=== PATIENT | female | born 1975 | race Hispanic/Latino ===

== ENCOUNTER 2021-12-30 19:47 | Emergency (ER) | payer OTHER, MEDICARE ==
[~2021-12-30] VITALS: Ht 165.1 cm; Wt 79.4 kg
[2021-12-30 20:14] LABS: BASOPHILS % (AUTO) 0.4 % (0.0-5.0); EOSINOPHILS % (AUTO) 3.6 % (0.0-8.0); LYMPHOCYTES % (AUTO) 29.9 % (21.0-51.0); MEAN CORPUSCULAR HEMOGLOBIN 27.7 pg (27.0-33.0); MEAN CORPUSCULAR HGB CONC 33.3 g/dL (32.0-36.0); MONOCYTES % (AUTO) 8.9 % (3.0-13.0); NEUTROPHILS % (AUTO) 56.4 % (40.0-77.0); PLATELET COUNT (AUTO) 148 K/uL (130-400); RED BLOOD CELL COUNT(AUTO) 5.06 MIL/uL (4.00-5.50); RED CELL DISTRIBUTION WIDTH 14.2 % (11.0-15.5); WHITE BLOOD COUNT (AUTO) 5.1 K/uL (4.8-10.8)
[2021-12-30 20:23] LABS: CREATININE 0.8 mg/dL (0.5-1.5); POTASSIUM 3.8 mmol/L (3.5-5.1)
[2021-12-30 20:28] LABS: ALBUMIN 3.3 g/dL (3.5-5.0); MAGNESIUM 1.9 mg/dL (1.80-2.40); TOTAL PROTEIN, SERUM 7.4 g/dL (6.0-8.3)
[2021-12-30 20:40] LABS: APPEARANCE,URINE CLOUDY (CLEAR); BILIRUBIN,URINE NEGATIVE (NEGATIVE); COLOR,URINE YELLOW (YELLOW); GLUCOSE, URINE (UA) >=1000 mg/dL (NEGATIVE); KETONES,URINE 5 mg/dL (NEGATIVE); LEUKOCYTE ESTERASE ,URINE NEGATIVE (NEGATIVE); NITRATE,URINE NEGATIVE (NEGATIVE); OCCULT BLOOD,URINE SMALL (NEGATIVE); PH,URINE 5.5 (5.0-8.0); PROTEIN,URINE 100 mg/dL (NEGATIVE); UROBILINOGEN,URINE 0.2 mg/dL (0.2-1.0)
[2021-12-30 20:45] LABS: B-TYPE NATRIURETIC PEPTIDE < 5 pg/mL (0-100)
[2021-12-30 20:50] LABS: BACTERIA,URINE Few /HPF (None Seen); YEAST,URINE BUDDING Many /HPF (None Seen)
[2021-12-30 20:51] LABS: MUCUS,URINE Few LPF (None Seen); SQUAMOUS EPITHELIAL CELL,UR Moderate /HPF (0-2)
[2021-12-30] MEDS ORDERED: ONDANSETRON ODT 4MG TAB SL ONE (21:30)
[2021-12-30] MEDS ORDERED: ACETAMINOPHEN 500 MG TABLET PO ONE (21:30)
[2021-12-30] MEDS ORDERED: ONDA4TAB10 PO (23:10)
[2021-12-30 23:23] VITALS: BP 119/68
== END 2021-12-30 23:29 | disposition home or self-care (01) ==
LOC: EDH 19:47
DX: U07.1 COVID-19 (principal); E11.65 Type 2 diabetes mellitus with hyperglycemia; T36.3X5A Adverse effect of macrolides, initial encounter; Z88.0 Allergy status to penicillin; Y92.89 Other specified places as the place of occurrence of the external cause
CPT/HCPCS: 99285; 71045; 87635; 82550; 83735; 84484; 80053; 83880; 85025; 87088; 81001; 36415; 93005; C9803

== ENCOUNTER 2024-10-13 19:46 | Emergency (ER) | payer MEDICARE, MEDICAID ==
[~2024-10-13] VITALS: Ht 160 cm; Wt 113.4 kg
[~2024-10-13 19:46] MED LIST: ONDA-243 PO
--- NOTE | 2024-10-13 21:04 | NUR ---
PENDING GFR RESULTS, IV SITE, & CONSENT FOR CT EXAM. Addendum: 10/13/24 at 2134 by BENITO BALLARD RAD CORRECTION: NO IV SITE NOR GFR NEEEDED FOR CT EXAM.
--- NOTE | 2024-10-13 21:12 | ERN ---
ED Note History of Present Illness Stated Complaint: PAIN IN ABDOMEN AND BACK,NAUSEA Chief Complaint: Abdominal Pain Time Seen by MD: 19:50 Time Seen by Midlevel: 19:52 Dictation: 38-YEAR-OLD FEMALE COMING IN WITH COMPLAINTS OF LEFT FLANK PAIN RADIATING TO THE LEFT UPPER QUADRANT ONSET YESTERDAY. PATIENT STATES HE ONLY HAS NAUSEA, NO DIARRHEA NO VOMITING. DENIES ANY DYSURIA HEMATURIA. PATIENT HAS A HISTORY OF HYPERTENSION, DIABETES CHOLESTEROL. Allergies: Coded Allergies: Penicillins (Unverified Allergy, Unknown, 12/30/21) Sulfa (Sulfonamide Antibiotics) (Unverified Allergy, Unknown, 10/13/24) Uncoded Allergies: FLU VACCINE (Allergy, Unknown, 10/13/24) Home Meds Active Scripts Ondansetron (Ondansetron Odt) 4 Mg Tab.rapdis, 4 MG PO TID PRN for NAUSEA, #15 TAB 0 Refills Prov:TEVIN LEOS MD 12/30/21 Past Medical History Past Medical History: Diabetes-Type II, High Cholesterol, Hypertension, Renal Failure Surgical History: Other, Surgical History Other: L BKA Review of System Dictation CONSTITUTIONAL: NEGATIVE FOR FEVER,CHILLS, AND WEIGHT LOSS EYES: NEGATIVE FOR INJURY, PAIN,REDNESS, AND DISCHARGE ENT: NEGATIVE FOR INJURY,PAIN OR SWELLING CARDIOVASCULAR: NEGATIVE FOR CHEST PAIN, PALPITATIONS, AND EDEMA RESPIRATORY: NEGATIVE FOR SHORTNESS OF BREATH, COUGH, AND WHEEZING, ABDOMEN/GI: POSITIVE FOR LEFT FLANK PAIN RADIATING TO THE LEFT UPPER QUADRANT, NAUSEA, NO VOMITING, NO DIARRHEA, AND NO CONSTIPATION BACK: NEGATIVE FOR INJURY AND PAIN : NEGATIVE FOR INJURY, BLEEDING AND DISCHARGE MS/EXTREMITY: NEGATIVE FOR INJURY AND DEFORMITY SKIN: NEGATIVE FOR RASH, AND DISCOLORATION NEURO: NEGATIVE FOR HEADACHE, WEAKNESS, NUMBNESS, TINGLING, AND SEIZURE PSYCH: NEGATIVE FOR SUICIDE IDEATION, HOMICIDAL IDEATION, AND HALLUCINATIONS Review of Systems: was completed Initial Vital Sign VS Vital Signs Date Time Temp Pulse Resp B/P (MAP) Pulse Ox O2 Delivery O2 Flow Rate FiO2 10/13/24 19:47 98.4 99 20 170/92 96 Room Air 10/13/24 20:07 0 21 Physical Exam Dictation GENERAL: AWAKE, ALERT, NAD HEAD/FACE: NORMOCEPHALIC, ATRAUMATIC EYES: PERRL, EOMI, VISION AT BASELINE ENT: ORAL CAVITY CLEAR, TMS CLEAR, NO SIGNS OF INFECTION NECK: TRACHEA MIDLINE, SUPPLE, NO NUCHAL RIGIDITY CARDIOVASCULAR: RRR, NORMAL S1/S2, NO MRGS, NO JVD RESPIRATORY: CTAB, NO RESPIRATORY DISTRESS, NO RALES OR WHEEZES ABDOMEN: SOFT, NON-TENDER, NON-DISTENDED, NORMAL BOWEL SOUNDS, NO GUARDING OR REBOUND. SKIN: WARM, DRY, NORMAL TURGOR, NO RASH MS/EXTREMITY: PULSES EQUAL, NO CYANOSIS, NEUROVASCULAR INTACT, FROM NEURO: COAX4, GCS 15, STRENGTH 5/5, CN 2-12 INTACT, NORMAL CEREBELLAR EXAM, NORMAL GAIT, PSYCH: NORMAL BEHAVIOR, MOOD, AND AFFECT NORMAL Results (Laboratory/Radiology) Laboratory/Radiology Laboratory Tests Test 10/13/24 21:00 10/13/24 21:25 Urine Color LIGHT-YELLOW (YELLOW) Urine Appearance CLEAR (CLEAR) Urine pH 5.5 (5.0-8.0) Urine Specific [place] 1.028 (1.001-1.031) Urine Protein 200 mg/dL (NEGATIVE) H Urine Glucose (UA) >=1000 mg/dL (NEGATIVE) H Urine Ketones NEGATIVE mg/dL (NEGATIVE) Urine Occult Blood SMALL (NEGATIVE) H Urine Nitrate NEGATIVE (NEGATIVE) Urine Bilirubin NEGATIVE mg/dL (NEGATIVE) Urine Urobilinogen 0.2 mg/dL (0.2-1.0) Urine Leukocyte Esterase NEGATIVE Maria Elena/uL Urine RBC 11-25 /HPF (0-1) H Urine WBC 2-5 /HPF (0-1) H Urine Squamous Epithelial Cells MOD /HPF (0-2) Urine Bacteria RARE /HPF (None Seen) Urine Hyaline Casts 2-5 /LPF (0-1 /LPF) H White Blood Count 8.2 K/uL (4.8-10.8) Red Blood Count 5.23 MIL/uL (4.00-5.50) Hemoglobin 13.9 g/dL (12.0-16.0) Hematocrit 42.3 % (36-48) Mean Corpuscular Volume 80.9 fL (79-99) Mean Corpuscular Hemoglobin 26.6 pg (27.0-33.0) L Mean Corpuscular Hemoglobin Concent 32.9 g/dL (32.0-36.0) Red Cell Distribution Width 14.7 % (11.0-15.5) Platelet Count 176 K/uL (130-400) Mean Platelet Volume 11.9 fL (7.5-10.5) H Immature Granulocyte % (Auto) 0.4 % (0-1) Neutrophils (%) (Auto) 68.3 % (40.0-77.0) Lymphocytes (%) (Auto) 21.6 % (21.0-51.0) Monocytes (%) (Auto) 5.5 % (3.0-13.0) Eosinophils (%) (Auto) 3.7 % (0.0-8.0) Basophils (%) (Auto) 0.5 % (0.0-5.0) Neutrophils # (Auto) 5.6 K/uL (1.8-7.7) Lymphocytes # (Auto) 1.8 K/uL (1.0-4.8) Monocytes # (Auto) 0.5 K/uL (0.1-1.0) Eosinophils # (Auto) 0.30 K/uL (0.00-0.70) Basophils # (Auto) 0.04 K/uL (0.00-0.20) Absolute Immature Granulocyte (auto 0.03 K/uL (0-1) Nucleated Red Blood Cells 0.0 % (0.0-0.19) Sodium Level 139 mmol/L (136-145) Potassium Level 3.7 mmol/L (3.5-5.1) Chloride Level 103 mmol/L (101-111) Carbon Dioxide Level 26 mmol/L (21-32) Blood Urea Nitrogen 19 mg/dL (7-18) H Creatinine 1.0 mg/dL (0.5-1.0) Glomerular Filtration Rate Calc 69 mL/min (>90) Random Glucose 203 mg/dL (70-105) H Total Calcium 8.6 mg/dL (8.5-10.1) Troponin I High Sensitivity < 4 ng/L (4-50) L Lipase 24 U/L (16-77) Labs Reviewed?: Yes CT Scan Comment: [place] [address] [place] [id number] IMAGING REPORT Signed PATIENT: ELENO ROBLES MR#: [id number] : 1975 SEX: F AGE: 48 LOCATION: [facility] ORDER 49 STATUS: REG ER REPORT#: [id number] SERVICE 47 REASON: LEFT FLANK PAIN RADIATING TO LUQ ORDERING PHYSICIAN: AIDA VARGAS NP PROCEDURE: ABD PEL WO - CT ABDOMEN/PELVIS W/O CONTRAST CT ABDOMEN/PELVIS W/O CONTRAST INDICATION: LEFT FLANK PAIN RADIATING TO LUQ TECHNIQUE: CT ABDOMEN/PELVIS W/O CONTRAST. Oral contrast was not given. Coronal and sagittal reformats were performed. CT was performed with one or more of the following dose reduction techniques: Automated exposure control, adjustment of the mA and/or kV according to the patient's size, or use of the iterative reconstruction technique. Comparison: None. FINDINGS: The noncontrast nature this study limits evaluation of abdominal viscera. No pulmonary consolidation or pleural effusion is seen. There is hepatic steatosis. Questionable small gallstone. No CT evidence of gallbladder thickening seen. The spleen, pancreas, and adrenal glands are within normal limits. No hydronephrosis or renal calculus is seen. Underdistention versus mild urinary bladder wall thickening. Correlate with urinalysis. There is mild constipation. Reproductive organs are grossly within normal limits for patient's age. No bowel obstruction identified. Appendix is normal in caliber. Atherosclerotic changes of the aorta with calcified plaques. Degenerative changes of the spine are seen. IMPRESSION: 1. No hydronephrosis or renal calculus is seen. 2. Underdistention versus mild urinary bladder wall thickening. Correlate with urinalysis. 3. There is mild constipation. DICTATED BY: ALEC LANGE MD DATE: 10/13/242149 ELECTRONICALLY SIGNED BY: ALEC LANGE MD DATE: 10/13/242155 ED Course ED Course Orders Procedure Category Date Status Time Cbc With Differential LAB 10/13/24 Complete 20:48 Basic Metabolic Panel LAB 10/13/24 Complete 20:48 Urinalysis Profile LAB 10/13/24 Complete 20:48 Lipase LAB 10/13/24 Complete 20:48 Ct Abdomen/Pelvis W/O CT 10/13/24 Resulted Contrast 20:48 0.9%Nacl 1000ml (Ns PHA 10/13/24 Complete 1000ml) 20:49 Ondansetron 4mg Inj PHA 10/13/24 Complete (Zofran 4mg Inj) 20:49 Ketorolac PHA 10/13/24 Complete Tromethamine 15mg/Ml 20:49 12 Lead Ekg Tracing- EKG 10/13/24 Complete Technical 21:10 Troponin I High LAB 10/13/24 Complete Sensitivity 21:10 Current Medications Medications (Trade) Dose Ordered Sig/Godwin Route PRN Reason Start Time Stop Time Status Last Admin Dose Admin Ketorolac Tromethamine (toRADol) 15 mg ONCE STAT IV 10/13/24 20:49 10/13/24 20:55 DC 10/13/24 21:23 Ondansetron HCl (zoFRAN 4MG INJ) 4 mg ONCE STAT IVP 10/13/24 20:49 10/13/24 20:55 DC 10/13/24 21:23 Sodium Chloride 1,000 ml @ 1,000 mls/hr Q1H STAT IV 10/13/24 20:49 10/13/24 21:48 DC 10/13/24 21:23 Vital Signs Date Time Temp Pulse Resp B/P (MAP) Pulse Ox O2 Delivery O2 Flow Rate FiO2 10/13/24 20:07 98.4 99 20 170/92 96 Room Air* 0 21 10/13/24 19:47 98.4 99 20 170/92 96 Room Air Medical Decision Making MDM 38-YEAR-OLD FEMALE COMING IN WITH COMPLAINTS OF LEFT FLANK PAIN RADIATING TO THE LEFT UPPER QUADRANT ONSET YESTERDAY. PATIENT STATES HE ONLY HAS NAUSEA, NO DIARRHEA NO VOMITING. DENIES ANY DYSURIA HEMATURIA. PATIENT HAS A HISTORY OF HYPERTENSION, DIABETES CHOLESTEROL. MDM: 38-YEAR-OLD FEMALE COMING IN WITH COMPLAINTS OF LEFT FLANK PAIN RADIATING TO THE LEFT UPPER QUADRANT ONSET YESTERDAY. PATIENT STATES HE ONLY HAS NAUSEA, NO DIARRHEA NO VOMITING. DENIES ANY DYSURIA HEMATURIA. PATIENT HAS A HISTORY OF HYPERTENSION, DIABETES CHOLESTEROL.CBC SHOWS NO LEUKOCYTOSIS, NO ANEMIA, NO THROMBOCYTOPENIA. CHEMISTRY SHOWS HYPERGLYCEMIA AT 2:03 A.M.. NORMAL TROPONIN. NORMAL LIPASE. NORMAL KIDNEY FUNCTION. NO ELECTROLYTE ABNORMALITY. UA SHOWS NO EVIDENCE OF URINARY TRACT INFECTION. CT SCAN SHOWS HEPATIC STEATOSIS, ABOUT CONSTIPATION. DISCUSSED FINDINGS WITH THE PATIENT. EDUCATED PATIENT SHE NEEDS TO TAKE [id number] STOOL SOFTENERS AND EAT MORE FIBER. PATIENT VERBALIZED UNDERSTANDING. DISCUSSED WITH THE PATIENT CONSTIPATION COULD BE THE CAUSE IF FURTHER ABDOMINAL PAIN AND MUSCULOSKELETAL COULD BE THE CAUSE OF HER LOWER BACK PAIN. PATIENT VERBALIZED UNDERSTANDING. EDUCATED FOLLOW UP WITH PCP. ANSWERED ALL QUESTIONS. DIFFERENTIAL DIAGNOSIS: RATIONALE: TESTS CONSIDERED AND ORDERED SECONDARY TO SHARED DECISION MAKING INCLUDE: PREVIOUS OUTSIDE RECORDS REVIEWED: OLD ER VISITS. RISK OF COMPLICATION AND/OR MORBIDITY OR MORTALITY OF PATIENT MANAGEMENT: NONE MEDICATIONS-PER MEDICATION RECONCILIATION NEED FOR HOSPITALIZATION: PATIENT DOES NOT MEET CRITERIA FOR HOSPITALIZATION. NEED FOR EMERGENCY MAJOR/MINOR SURGERY: NO THERE ARE NO SOCIAL CONCERNS WITH THIS PATIENT. PRESCRIPTION DRUG MANAGEMENT PRESCRIPTIONS WILL INCLUDE SYMPTOMATIC CARE PATIENT'S PRIOR EXTERNAL MEDICAL RECORDS FROM OTHER ER VISITS WERE REVIEWED BY ME INDICATED. PRIOR TESTING AND RESULTS FROM PREVIOUS VISITS WERE REVIEWED. PRIOR TESTS WERE TAKEN INTO ACCOUNT WITH MEDICAL DECISION MAKING AND RESOURCE UTILIZATION, INDEPENDENT HISTORIAN/HISTORIANS WERE USED TO OBTAIN COMPLETE MEDICAL HISTORY. I INDEPENDENTLY INTERPRETED THE TEST THAT WERE PERFORMED, RESULTS WERE REVIEWED BY ME AND CONSIDERED FINDINGS ON RADIOLOGY IF ORDERED. MEDICAL MANAGEMENT AND EXAMINATION INTERPRETATION DISCUSSIONS WERE HAD BY ME WITH OTHER QUALIFIED HEALTHCARE PROFESSIONALS INDICATED FOR THE PATIENT'S CARE. DX & DISP Disposition: Discharge Departure Impression: Primary Impression: Constipation Additional Impression: Hepatic steatosis Condition: Stable Scripts Meloxicam (Meloxicam) 7.5 Mg Tablet 7.5 MG PO DAILY for 5 Days, #5 TAB Prov: AIDA VARGAS STATE GAME PROTECTOR 10/13/24 Additional Instructions: INCREASE HYDRATION, INCREASED FIBER IN YOUR FOOD. YOU CAN TAKE STOOL SOFTENERS [id number]. FOLLOW UP WITH YOUR PRIMARY DOCTOR IN 1-2 DAYS. Referrals: MIGUEL ANGEL RODRIGUEZ (PCP) Time of Disposition: 22:14 I have reviewed the case, and I agree with, Diagnosis and Plan AIDA VARGAS NP October 13, 2024 21:12
[2024-10-13] MEDS: ondanSETRON 4MG INJ IVP STA (21:23)
[2024-10-13] MEDS: 0.9%NACL 1000ML 1,000 ML IV STA (21:23)
[2024-10-13] MEDS: ketOROlac 15MG/ML VIAL (15MG/ML) IV STA (21:23)
[2024-10-13 21:32] LABS: BASOPHILS # (AUTO) 0.04 K/uL (0.00-0.20); BASOPHILS % (AUTO) 0.5 % (0.0-5.0); EOSINOPHILS % (AUTO) 3.7 % (0.0-8.0); HEMATOCRIT 42.3 % (36-48); IMMATURE GRANULOCYTE ABSOLUTE 0.03 K/uL (0-1); LYMPHOCYTES # (AUTO) 1.8 K/uL (1.0-4.8); LYMPHOCYTES % (AUTO) 21.6 % (21.0-51.0); MEAN CORPUSCULAR HEMOGLOBIN 26.6 pg (27.0-33.0); MEAN CORPUSCULAR HGB CONC 32.9 g/dL (32.0-36.0); MEAN CORPUSCULAR VOLUME 80.9 fL (79-99); MONOCYTES # (AUTO) 0.5 K/uL (0.1-1.0); MONOCYTES % (AUTO) 5.5 % (3.0-13.0); NEUTROPHILS # (AUTO) 5.6 K/uL (1.8-7.7); NEUTROPHILS % (AUTO) 68.3 % (40.0-77.0); PLATELET COUNT (AUTO) 176 K/uL (130-400); RED BLOOD CELL COUNT(AUTO) 5.23 MIL/uL (4.00-5.50); RED CELL DISTRIBUTION WIDTH 14.7 % (11.0-15.5); WHITE BLOOD COUNT (AUTO) 8.2 K/uL (4.8-10.8)
[2024-10-13 21:34] LABS: APPEARANCE,URINE CLEAR (CLEAR); BILIRUBIN,URINE NEGATIVE (NEGATIVE); COLOR,URINE LIGHT-YELLOW (YELLOW); GLUCOSE, URINE (UA) >=1000 mg/dL (NEGATIVE); KETONES,URINE NEGATIVE (NEGATIVE); LEUKOCYTE ESTERASE ,URINE NEGATIVE Leu/uL (NEGATIVE); NITRATE,URINE NEGATIVE (NEGATIVE); OCCULT BLOOD,URINE SMALL (NEGATIVE); PH,URINE 5.5 (5.0-8.0); PROTEIN,URINE 200 mg/dL (NEGATIVE); UROBILINOGEN,URINE 0.2 mg/dL (0.2-1.0)
[2024-10-13 21:35] LABS: ADD UA MICROSCOPIC YES
[2024-10-13 21:46] LABS: BACTERIA,URINE RARE /HPF (None Seen); SQUAMOUS EPITHELIAL CELL,UR MOD /HPF (0-2)
[2024-10-13 21:48] LABS: POTASSIUM 3.7 mmol/L (3.5-5.1)
--- NOTE | 2024-10-13 21:51 | EKG ---
[facility] Test Date: 2024-10-13 Test Time: 21:48:25 Pat Name: ELENO ROBLES Department: [facility] Patient ID: [facility]-[id number] Room: Gender: F Tape Editor: [id number] : 1975 Requested By: AIDA VARGAS Order Number: [id number] Reading MD: Rebecca Castellano Measurements Intervals [place] Rate: 92 P: 140 AL: 142 QRS: -1 QRSD: 78 T: 8 QT: 376 QTc: 466 Interpretive Statements Sinus or ectopic atrial rhythm Low voltage, extremity leads Compared to ECG 12/30/2021 20:01:35 Ectopic atrial rhythm now present Sinus rhythm no longer present Electronically Signed On 10-14-2024 10:44:38 CDT by Rebecca Castellano Please click the below link to view image of tracing.
--- NOTE | 2024-10-13 21:56 | HMCIMG ---
CT ABDOMEN/PELVIS W/O CONTRAST INDICATION: LEFT FLANK PAIN RADIATING TO LUQ TECHNIQUE: CT ABDOMEN/PELVIS W/O CONTRAST. Oral contrast was not given. Coronal and sagittal reformats were performed. CT was performed with one or more of the following dose reduction techniques: Automated exposure control, adjustment of the mA and/or kV according to the patient's size, or use of the iterative reconstruction technique. Comparison: None. FINDINGS: The noncontrast nature this study limits evaluation of abdominal viscera. No pulmonary consolidation or pleural effusion is seen. There is hepatic steatosis. Questionable small gallstone. No CT evidence of gallbladder thickening seen. The spleen, pancreas, and adrenal glands are within normal limits. No hydronephrosis or renal calculus is seen. Underdistention versus mild urinary bladder wall thickening. Correlate with urinalysis. There is mild constipation. Reproductive organs are grossly within normal limits for patient's age. No bowel obstruction identified. Appendix is normal in caliber. Atherosclerotic changes of the aorta with calcified plaques. Degenerative changes of the spine are seen. IMPRESSION: 1. No hydronephrosis or renal calculus is seen. 2. Underdistention versus mild urinary bladder wall thickening. Correlate with urinalysis. 3. There is mild constipation.
[2024-10-13] MEDS ORDERED: MELO-106 PO (22:14)
[2024-10-13 22:18] VITALS: BP 119/77; PULSE 89; RESP 18; TEMP 98.3; O2SAT 97
== END 2024-10-13 22:27 | disposition home or self-care (01) ==
LOC: EDH 19:46
DX: K59.00 Constipation, unspecified (principal); K76.0 Fatty (change of) liver, not elsewhere classified; E11.9 Type 2 diabetes mellitus without complications; E78.00 Pure hypercholesterolemia, unspecified; I10 Essential (primary) hypertension; Z88.0 Allergy status to penicillin; Z88.2 Allergy status to sulfonamides; Z88.7 Allergy status to serum and vaccine; Z89.512 Acquired absence of left leg below knee
CPT/HCPCS: 99285; 74176; 96374; 96375; 84484; 80048; 83690; 85025; 81001; 36415; 93005; J1885; J7030; J2405

== ENCOUNTER 2024-11-25 14:16 | Emergency (ER) | payer MEDICARE ==
[~2024-11-25] VITALS: Ht 160 cm; Wt 114.8 kg
[~2024-11-25 14:16] MED LIST changes: +MELO-106 PO
[2024-11-25 15:54] LABS: BASOPHILS # (AUTO) 0.02 K/uL (0.00-0.20); BASOPHILS % (AUTO) 0.4 % (0.0-5.0); EOSINOPHILS # (AUTO) 0.27 K/uL (0.00-0.70); EOSINOPHILS % (AUTO) 5.4 % (0.0-8.0); HEMATOCRIT 39.5 % (36-48); IMMATURE GRANULOCYTE ABSOLUTE 0.02 K/uL (0-1); LYMPHOCYTES # (AUTO) 1.4 K/uL (1.0-4.8); LYMPHOCYTES % (AUTO) 28.9 % (21.0-51.0); MEAN CORPUSCULAR HEMOGLOBIN 26.5 pg (27.0-33.0); MEAN CORPUSCULAR HGB CONC 32.7 g/dL (32.0-36.0); MEAN CORPUSCULAR VOLUME 81.1 fL (79-99); MONOCYTES # (AUTO) 0.4 K/uL (0.1-1.0); MONOCYTES % (AUTO) 7.6 % (3.0-13.0); NEUTROPHILS # (AUTO) 2.9 K/uL (1.8-7.7); NEUTROPHILS % (AUTO) 57.3 % (40.0-77.0); PLATELET COUNT (AUTO) 143 K/uL (130-400); RED BLOOD CELL COUNT(AUTO) 4.87 MIL/uL (4.00-5.50); RED CELL DISTRIBUTION WIDTH 15.2 % (11.0-15.5)
[2024-11-25 16:08] LABS: CREATININE 0.8 mg/dL (0.5-1.0); POTASSIUM 3.8 mmol/L (3.5-5.1)
--- NOTE | 2024-11-25 16:21 | ERN ---
General Chief Complaint: Lower Extremity Pain/Injury Stated Complaint: RT FOOT SWOLLEN FOR 2 DAYS Time Seen by MD: 14:18 Source: patient History of Present Illness Initial Comments PATIENT IS A 49-YEAR-OLD FEMALE COMING IN TO BE EVALUATED FOR RIGHT LOWER EXTREMITY SWELLING. PER PATIENT SHE NOTICED THE SWELLING A COUPLE OF DAYS AGO. THERE WAS NO TENDERNESS SHE STATES HE DID NOT HIT HER LEGS OR ANYTHING ELSE. Allergies: Coded Allergies: Penicillins (Unverified Allergy, Unknown, 12/30/21) Sulfa (Sulfonamide Antibiotics) (Unverified Allergy, Unknown, 10/13/24) Uncoded Allergies: FLU VACCINE (Allergy, Unknown, 10/13/24) Home Meds Active Scripts Meloxicam (Meloxicam) 7.5 Mg Tablet, 7.5 MG PO DAILY for 5 Days, #5 TAB Prov:AIDA VARGAS NP 10/13/24 Ondansetron (Ondansetron Odt) 4 Mg Tab.rapdis, 4 MG PO TID PRN for NAUSEA, #15 TAB 0 Refills Prov:TEVIN LEOS MD 12/30/21 Past Medical History Past Medical History: Diabetes-Type II, High Cholesterol, Hypertension Medical History Other: GASTROPARESIS Past Surgical History: Other, Surgical History Other: L BKA ROS Dictation CONSTITUTIONAL: NO CHILLS, NO FEVER, NO WEAKNESS, NO DIAPHORESIS, NO MALAISE. HEAD/FACE: NO SIGNS OF TRAUMA. EENT: NO EYE PAIN, NO BLURRED VISION, NO TEARING, NO DOUBLE VISION, NO EAR PAIN, NO EAR DISCHARGE, NO NOSE PAIN, NO NASAL CONGESTION, NO THROAT PAIN, NO THROAT SWELLING, NO MOUTH PAIN. RESPIRATORY: NO COUGH, NO ORTHOPNEA, NO SOB, NO STRIDOR, NO WHEEZING. CARDIOVASCULAR: NO CHEST PAIN, NO EDEMA, NO PALPITATIONS, NO SYNCOPE. GASTROINTESTINAL/ABDOMINAL: NO ABDOMINAL PAIN, NO CONSTIPATION, NO DIARRHEA, NO NAUSEA, NO VOMITING. GENITOURINARY: NO ABNORMAL DISCHARGE, NO DYSURIA, NO FREQUENT URINATION, NO HEMATURIA. NO COMPLAINTS OF PAIN IN THE GENITALS. MUSCULOSKELETAL: NO BACK PAIN, NO GOUT, NO JOINT PAIN, NO JOINT SWELLING, NO MUSCLE PAIN, NO MUSCLE STIFFNESS, NO NECK PAIN. INTEGUMENTARY: NO CHANGE IN COLOR, NO CHANGE IN HAIR/NAILS, NO DRYNESS, NO LESION, NO LUMPS, NO RASH. NEUROLOGICAL/PSYCH: NO ANXIETY, NOT DEPRESSED, NO EMOTIONAL PROBLEM, NO HEADACHE, NO NUMBNESS, NO PRE-EXISTING DEFICIT, NO HISTORY OF SEIZURES, NO TREMORS, NO WEAKNESS. HEMATOLOGIC/LYMPHATIC: NOT ANEMIC, NO HISTORY OF BLOOD CLOTS, NO APPARENT BLEEDING, NO BRUISING, GLANDS NOT SWOLLEN. ALL SYSTEMS NEGATIVE, EXCEPT NOTED. Physical Exam Physical Exam Dictation VITAL SIGNS: REVIEWED. GENERAL APPEARANCE: ALERT, ORIENTED X3, NO ACUTE DISTRESS, OBESE. HEAD AND FACE: NON-TRAUMATIC. EYES: PERRL, PINK CONJUNCTIVAS, EYELID NO TRAUMA, ANTERIOR CHAMBER CLEAR. EARS: PINNAS INTACT AND NO SIGNS OF TRAUMA OR ERYTHEMA. EAR CANALS CLEAR AND NO DISCHARGE. TMS NO ERYTHEMA. NOSE: NO DISCHARGE, NO BLEEDING. OROPHARYNX: MOUTH NORMAL, TEETH NO CARIES, TONGUE PINK. PHARYNX CLEAR, NO ERYTHEMA. TONSILS NO EXUDATES, NO ABSCESSES NOTED. MUCOUS MEMBRANE MOIST. NECK: SUPPLE, NON-TENDER, NO THYROMEGALY, NO MASSES, NO JVD, NO BRUITS. BREAST: DEFERRED. CHEST: NO TENDERNESS, NO CREPITUS, NO PARADOXICAL MOVEMENT, NO RETRACTIONS. LUNGS: CLEAR, WELL-VENTILATED, SYMMETRIC, NO RALES, NO WHEEZING, NO RHONCHI, NO STRIDOR, GOOD BREATH SOUNDS BILATERALLY. HEART: REGULAR RATE, REGULAR RHYTHM, NO MURMUR, NO GALLOPS. VASCULAR: NO PERIPHERAL EDEMA. ABDOMEN: SOFT, POSITIVE BOWEL SOUNDS, NONDISTENDED, NO GUARDING, NONTENDER, NO REBOUND, NO MASSES NO HEPATOMEGALY, NO SPLENOMEGALY, NO HUYNH'S SIGN, NO HERNIAS. RECTAL: DEFERRED. GENITAL: DEFERRED. NEUROLOGICAL: NORMAL SPEECH, GROSS MOTOR FUNCTION INTACT, GROSS SENSORY FUNCTION INTACT. MUSCULOSKELETAL: NECK NONTENDER, FULL RANGE OF MOTION, BACK NONTENDER, FULL RANGE OF MOTION. EXTREMITIES: NONTENDER, FULL RANGE OF MOTION. RIGHT LOWER EXTREMITY PEDAL EDEMA 1+ SKIN: COLOR PINK, DRY, NO TURGOR, NO RASH, NO LACERATIONS, NO ABRASIONS, NO CONTUSIONS. LYMPHATICS: DEFERRED. Results Laboratory and Microbiology Lab and Micro Result Laboratory Tests Test 11/25/24 15:46 White Blood Count 5.0 K/uL (4.8-10.8) Red Blood Count 4.87 MIL/uL (4.00-5.50) Hemoglobin 12.9 g/dL (12.0-16.0) Hematocrit 39.5 % (36-48) Mean Corpuscular Volume 81.1 fL (79-99) Mean Corpuscular Hemoglobin 26.5 pg (27.0-33.0) L Mean Corpuscular Hemoglobin Concent 32.7 g/dL (32.0-36.0) Red Cell Distribution Width 15.2 % (11.0-15.5) Platelet Count 143 K/uL (130-400) Mean Platelet Volume 12.6 fL (7.5-10.5) H Immature Granulocyte % (Auto) 0.4 % (0-1) Neutrophils (%) (Auto) 57.3 % (40.0-77.0) Lymphocytes (%) (Auto) 28.9 % (21.0-51.0) Monocytes (%) (Auto) 7.6 % (3.0-13.0) Eosinophils (%) (Auto) 5.4 % (0.0-8.0) Basophils (%) (Auto) 0.4 % (0.0-5.0) Neutrophils # (Auto) 2.9 K/uL (1.8-7.7) Lymphocytes # (Auto) 1.4 K/uL (1.0-4.8) Monocytes # (Auto) 0.4 K/uL (0.1-1.0) Eosinophils # (Auto) 0.27 K/uL (0.00-0.70) Basophils # (Auto) 0.02 K/uL (0.00-0.20) Absolute Immature Granulocyte (auto 0.02 K/uL (0-1) Nucleated Red Blood Cells 0.0 % (0.0-0.19) Sodium Level 142 mmol/L (136-145) Potassium Level 3.8 mmol/L (3.5-5.1) Chloride Level 103 mmol/L (101-111) Carbon Dioxide Level 32 mmol/L (21-32) Blood Urea Nitrogen 29 mg/dL (7-18) H Creatinine 0.8 mg/dL (0.5-1.0) Glomerular Filtration Rate Calc 90 mL/min (>90) Random Glucose 209 mg/dL (70-105) H Total Calcium 8.9 mg/dL (8.5-10.1) Labs Reviewed?: Yes MDM MDM: DIFFERENTIAL DIAGNOSIS: PEDAL EDEMA, CELLULITIS, RATIONALE: TESTS CONSIDERED AND ORDERED SECONDARY TO SHARED DECISION MAKING INCLUDE: PREVIOUS OUTSIDE RECORDS REVIEWED: OLD ER VISITS. RISK OF COMPLICATION AND/OR MORBIDITY OR MORTALITY OF PATIENT MANAGEMENT: NONE MEDICATIONS-PER MEDICATION RECONCILIATION NEED FOR HOSPITALIZATION: PATIENT DOES NOT MEET CRITERIA FOR HOSPITALIZATION. PATIENT IS A 49-YEAR-OLD FEMALE COMING IN TO BE EVALUATED FOR RIGHT LOWER EXTREMITY FOOT SWELLING. PATIENT STATES THAT THIS STARTED TWO DAYS AGO. LABORATORY WORKUP NEGATIVE FOR ACUTE FINDINGS. PATIENT WILL BE DISCHARGED IN STABLE CONDITION WITH A DIAGNOSIS OF PEDAL EDEMA. I DID ADVISE HER WAYS TO DECREASE THE SWELLING IN HIS LOWER EXTREMITY. ED Course Orders Procedure Category Date Status Time Cbc With Differential LAB 11/25/24 Complete 14:43 Basic Metabolic Panel LAB 11/25/24 Complete 14:43 Vital Signs Date Time Temp Pulse Resp B/P (MAP) Pulse Ox O2 Delivery O2 Flow Rate FiO2 11/25/24 14:25 98.2 87 16 133/52 95 Room Air* 0 21 11/25/24 14:19 98.2 87 16 133/52 95 Room Air 0 DX & DISP Disposition: Discharge Departure Impression: Primary Impression: Pedal edema Condition: Stable Additional Instructions: FOLLOW-UP WITH PRIMARY CARE PROVIDER IN 1 TO 2 DAYS. TAKE MEDICATIONS DIRECTED HERE IN THE EMERGENCY ROOM. OKAY TO CONTINUE HOME MEDICATIONS UNLESS OTHERWISE DISCUSSED DURING YOUR VISIT IN THE EMERGENCY ROOM TODAY. RETURN TO YOUR NEAREST EMERGENCY ROOM IF SYMPTOMS WORSEN OR IF THERE IS NO IMPROVEMENT. CALL 911 IF YOU NEED IMMEDIATE ASSISTANCE. TAKE TYLENOL [id number] NEEDED AND IF NO CONTRAINDICATIONS ARE PRESENT. INCREASE ORAL HYDRATION. A WOUND CULTURE OR URINE CULTURE WAS ORDERED HERE IN THE EMERGENCY ROOM DEPARTMENT PLEASE FOLLOW-UP WITH PRIMARY CARE PROVIDER AND ADVISE THEM TO GET REPORTS FROM OUR FACILITY. IF YOU HAD ANY ELAINE WRAP/SPLINTS THAT WERE APPLIED HERE, PLEASE DO NOT REMOVE THEM UNTIL YOU SEE YOUR PRIMARY CARE OR SPECIALTY. REFERRALS: Referrals: MIGUEL ANGEL RODRIGUEZ (PCP) Time of Disposition: 16:21 FEDE PELAYO MD Nov 25, 2024 16:21
[2024-11-25 16:29] VITALS: BP 131/74; PULSE 84; RESP 16; TEMP 97.8; O2SAT 98
== END 2024-11-25 16:29 | disposition home or self-care (01) ==
LOC: EDH 14:16
DX: R60.0 Localized edema (principal); E11.43 Type 2 diabetes mellitus with diabetic autonomic (poly)neuropathy; E78.00 Pure hypercholesterolemia, unspecified; I10 Essential (primary) hypertension; K31.84 Gastroparesis; Z79.1 Long term (current) use of non-steroidal anti-inflammatories (NSAID); Z88.0 Allergy status to penicillin; Z88.2 Allergy status to sulfonamides; Z88.7 Allergy status to serum and vaccine; Z89.512 Acquired absence of left leg below knee
CPT/HCPCS: 36415; 80048; 85025; 99284

== ENCOUNTER 2024-11-28 22:27 | Emergency (ER) | payer MEDICARE, MEDICAID ==
[~2024-11-28] VITALS: Ht 160 cm; Wt 113.9 kg
[2024-11-29 00:58] LABS: BASOPHILS # (AUTO) 0.02 K/uL (0.00-0.20); BASOPHILS % (AUTO) 0.4 % (0.0-5.0); EOSINOPHILS # (AUTO) 0.28 K/uL (0.00-0.70); EOSINOPHILS % (AUTO) 5.1 % (0.0-8.0); HEMATOCRIT 38.1 % (36-48); IMMATURE GRANULOCYTE ABSOLUTE 0.02 K/uL (0-1); LYMPHOCYTES # (AUTO) 1.9 K/uL (1.0-4.8); LYMPHOCYTES % (AUTO) 34.8 % (21.0-51.0); MEAN CORPUSCULAR HEMOGLOBIN 26.7 pg (27.0-33.0); MEAN CORPUSCULAR HGB CONC 32.5 g/dL (32.0-36.0); MEAN CORPUSCULAR VOLUME 82.1 fL (79-99); MONOCYTES # (AUTO) 0.4 K/uL (0.1-1.0); MONOCYTES % (AUTO) 7.6 % (3.0-13.0); NEUTROPHILS # (AUTO) 2.9 K/uL (1.8-7.7); NEUTROPHILS % (AUTO) 51.7 % (40.0-77.0); PLATELET COUNT (AUTO) 147 K/uL (130-400); RED BLOOD CELL COUNT(AUTO) 4.64 MIL/uL (4.00-5.50); RED CELL DISTRIBUTION WIDTH 15.5 % (11.0-15.5); WHITE BLOOD COUNT (AUTO) 5.5 K/uL (4.8-10.8)
[2024-11-29 01:03] LABS: CREATININE 0.9 mg/dL (0.5-1.0); POTASSIUM 3.8 mmol/L (3.5-5.1)
--- NOTE | 2024-11-29 02:12 | ERN ---
General Chief Complaint: FOOT INJURY/PAIN Stated Complaint: RIGHT FOOT PAIN Time Seen by MD: 22:43 Time Seen by Midlevel: 22:43 Source: patient History of Present Illness Initial Comments The patient is a morbidly obese 49-year-old female with a past medical history of type 2 diabetes, hyperlipidemia, and hypertension presenting to the emergency department for evaluation of worsening right lower extremity pain. She states that for the last six days she has had an increase in pain to her right foot and right lower leg. She was seen in our emergency department two days ago where she had blood work performed but was ultimately discharged with a diagnosis of pedal edema. 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 She saw her primary care doctor for this issue and has an ultrasound scheduled for tomorrow morning but states her pain is unbearable and rates it 9/10. Allergies: Coded Allergies: Penicillins (Unverified Allergy, Unknown, 12/30/21) Sulfa (Sulfonamide Antibiotics) (Unverified Allergy, Unknown, 10/13/24) Uncoded Allergies: FLU VACCINE (Allergy, Unknown, 10/13/24) Home Meds Active Scripts Meloxicam (Meloxicam) 7.5 Mg Tablet, 7.5 MG PO DAILY for 5 Days, #5 TAB Prov:AIDA VARGAS NP 10/13/24 Ondansetron (Ondansetron Odt) 4 Mg Tab.rapdis, 4 MG PO TID PRN for NAUSEA, #15 TAB 0 Refills Prov:TEVIN LEOS MD 12/30/21 Past Medical History Past Medical History: Diabetes-Type II, High Cholesterol, Hypertension Medical History Other: GASTROPARESIS Past Surgical History: Other, Surgical History Other: BKA LEFT ROS Dictation CONSTITUTIONAL: Negative except for HPI HEAD/FACE: Negative except for HPI EENT: Negative except for HPI RESPIRATORY: Negative except for HPI GASTROINTESTINAL/ABDOMINAL: Negative except for HPI GENITOURINARY: Negative except for HPI MUSCULOSKELETAL: Negative except for HPI INTEGUMENTARY: Negative except for HPI NEUROLOGICAL/PSYCH: Negative except for HPI HEMATOLOGIC/LYMPHATIC: Negative except for HPI All Systems Negative, Except as noted above. 13 point review of systems assessed and all negative except for above. Physical Exam Physical Exam Dictation Vital Signs reviewed General Appearance: Alert, oriented x 3, no acute distress, well developed, nourished. Head and Face: non-traumatic. Eyes: Patient is blind Ears: Pinnas intact and no signs of trauma or erythema ear canals clear and no discharge TM no erythema Nose: No discharge, no bleeding. Oropharynx: Mouth normal, tongue pink, pharynx clear,no erythema, tonsils no exudates, no abscesses noted, mucous membrane moist Neck: Supple, non-tender, no thyromegaly, no masses, no JVD, no bruits Breast:Deferred Chest:No tenderness, no crepitus, no paradoxical movement, no retractions Lungs:Clear, well-ventilated, symmetric, no rales, no wheezing, no rhonchi, no stridor, good breath sounds bilaterally Heart: Regular rate, regular rhythm, no murmur, no gallops Vascular: no peripheral edema, Abdomen: Soft, positive bowel sounds, nondistended, no guarding, nontender, no rebound, no masses no hepatomegaly, no splenomegaly, no Blakely's sign, no hernias. Rectal: Deferred Genital: Deferred Neurological: Normal speech, motor function intact, sensory function intact Musculoskeletal: Left BKA, 2+ pitting edema to right lower extremity Extremities: n left BKA Skin: Color pink, dry, no turgor, no rash, no lacerations, no abrasions, no co ntusions. Lymphatic: Deferred Results Laboratory and Microbiology Lab and Micro Result Laboratory Tests Test 11/29/24 00:37 White Blood Count 5.5 K/uL (4.8-10.8) Red Blood Count 4.64 MIL/uL (4.00-5.50) Hemoglobin 12.4 g/dL (12.0-16.0) Hematocrit 38.1 % (36-48) Mean Corpuscular Volume 82.1 fL (79-99) Mean Corpuscular Hemoglobin 26.7 pg (27.0-33.0) L Mean Corpuscular Hemoglobin Concent 32.5 g/dL (32.0-36.0) Red Cell Distribution Width 15.5 % (11.0-15.5) Platelet Count 147 K/uL (130-400) Mean Platelet Volume 12.7 fL (7.5-10.5) H Immature Granulocyte % (Auto) 0.4 % (0-1) Neutrophils (%) (Auto) 51.7 % (40.0-77.0) Lymphocytes (%) (Auto) 34.8 % (21.0-51.0) Monocytes (%) (Auto) 7.6 % (3.0-13.0) Eosinophils (%) (Auto) 5.1 % (0.0-8.0) Basophils (%) (Auto) 0.4 % (0.0-5.0) Neutrophils # (Auto) 2.9 K/uL (1.8-7.7) Lymphocytes # (Auto) 1.9 K/uL (1.0-4.8) Monocytes # (Auto) 0.4 K/uL (0.1-1.0) Eosinophils # (Auto) 0.28 K/uL (0.00-0.70) Basophils # (Auto) 0.02 K/uL (0.00-0.20) Absolute Immature Granulocyte (auto 0.02 K/uL (0-1) Nucleated Red Blood Cells 0.0 % (0.0-0.19) Sodium Level 138 mmol/L (136-145) Potassium Level 3.8 mmol/L (3.5-5.1) Chloride Level 100 mmol/L (101-111) L Carbon Dioxide Level 27 mmol/L (21-32) Blood Urea Nitrogen 31 mg/dL (7-18) H Creatinine 0.9 mg/dL (0.5-1.0) Glomerular Filtration Rate Calc 78 mL/min (>90) Random Glucose 284 mg/dL (70-105) H Lactic Acid Level 1.9 mmol/L (0.8-2.5) Total Calcium 9.0 mg/dL (8.5-10.1) Labs Reviewed?: Yes MDM The patient is a morbidly obese 49-year-old female with a past medical history of type 2 diabetes, hyperlipidemia, and hypertension presenting to the emergency department for evaluation of worsening right lower extremity pain. She states that for the last six days she has had an increase in pain to her right foot and right lower leg. She was seen in our emergency department two days ago where she had blood work performed but was ultimately discharged with a diagnosis of pedal edema. 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 She saw her primary care doctor for this issue and has an ultrasound scheduled for tomorrow morning but states her pain is unbearable and rates it 9/10. On physical examination patient has a left BKA. She has 2+ pitting edema to right lower extremity. An ultrasound of the right lower extremity was obtained to rule out DVT. Ultrasound reveals evidence of a Cabello cyst but no evidence of a DVT. Findings discussed with the patient and all questions answered. ED Course Orders Procedure Category Date Status Time Cbc With Differential LAB 11/28/24 Complete 23:38 Basic Metabolic Panel LAB 11/28/24 Complete 23:38 Lactic Acid LAB 11/28/24 Complete 23:38 Us Venous Doppler US 11/29/24 Taken Unilateral 01:34 Vital Signs Date Time Temp Pulse Resp B/P (MAP) Pulse Ox O2 Delivery O2 Flow Rate FiO2 11/28/24 22:29 98.1 86 19 138/67 98 Room Air 0 DX & DISP Disposition: Discharge Departure Impression: Primary Impression: Cabello's cyst of knee Condition: Stable Referrals: CHRISTINE SCHMITT (PCP) Time of Disposition: 02:44 I have reviewed the case, and I agree with, Diagnosis and Plan I performed the substantive portion of the visit. I have reviewed and personal ly made and approve the management plan that is documented in the note by myself or the MAG. I acknowledge for responsibility for the patient's management plan. JAG ZIEGLER Nov 29, 2024 02:12
[2024-11-29 02:40] VITALS: BP 138/79; PULSE 72; RESP 19; TEMP 98; O2SAT 98
--- NOTE | 2024-11-29 08:58 | HMCIMG ---
US VENOUS DOPPLER UNILATERAL HISTORY: DVT COMPARISON: None TECHNIQUE: Right lower extremity venous Doppler ultrasound study was performed. FINDINGS: The right common femoral, femoral, popliteal, and posterior tibial veins are visualized. Normal flow with augmentation and compressibilities are demonstrated. Right greater saphenous vein is patent. There is right Cabello's cyst measuring 3.4 x 1.1 x 3 cm. IMPRESSION: 1. No evidence of deep venous thrombosis is seen. Right Cabello's cyst.
== END 2024-11-29 03:02 | disposition home or self-care (01) ==
LOC: EDH 22:27
DX: M71.21 Synovial cyst of popliteal space [Baker], right knee (principal); M79.661 Pain in right lower leg; E11.43 Type 2 diabetes mellitus with diabetic autonomic (poly)neuropathy; E78.00 Pure hypercholesterolemia, unspecified; I10 Essential (primary) hypertension; K31.84 Gastroparesis; E66.01 Morbid (severe) obesity due to excess calories; Z79.1 Long term (current) use of non-steroidal anti-inflammatories (NSAID); Z88.0 Allergy status to penicillin; Z88.2 Allergy status to sulfonamides; Z88.7 Allergy status to serum and vaccine; Z89.512 Acquired absence of left leg below knee
CPT/HCPCS: 36415; 80048; 83605; 85025; 93971; 99284

== ENCOUNTER 2025-01-14 10:31 | Emergency (ER) | payer MEDICARE, MEDICAID ==
[~2025-01-14] VITALS: Ht 160 cm; Wt 113.9 kg
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
[2025-01-14 11:16] VITALS: BP 120/72; PULSE 74; RESP 16; TEMP 98.2; O2SAT 98
[2025-01-14] MEDS ORDERED: DICL20GE TP (11:40)
[2025-01-14] MEDS: NAPROXEN 500 MG TABLET PO ONE (11:43)
--- NOTE | 2025-01-14 12:07 | HMCIMG ---
EXAM: CR right Forearm, 2 View. CLINICAL HISTORY: ARM SWELLING COMPARISON: None provided. FINDINGS: BONES: No acute fracture or aggressive appearing osseous lesion. JOINTS: No dislocation. The joint spaces are normal. SOFT TISSUES: Diffuse soft tissue edema, and numerous small radiopacities projecting over the soft tissues of the distal arm and proximal forearm and hand that may reflect foreign bodies. Clinical correlation is advised. IMPRESSION: 1. Soft tissue edema with multiple small radiopaque densities in distal arm, proximal forearm and hand, possibly representing foreign bodies. /[place]
== END 2025-01-14 11:45 | disposition home or self-care (01) ==
LOC: EDH 10:31
DX: S50.11XA Contusion of right forearm, initial encounter (principal); E11.43 Type 2 diabetes mellitus with diabetic autonomic (poly)neuropathy; E78.00 Pure hypercholesterolemia, unspecified; I10 Essential (primary) hypertension; K31.84 Gastroparesis; M19.90 Unspecified osteoarthritis, unspecified site; Z79.1 Long term (current) use of non-steroidal anti-inflammatories (NSAID); Z88.0 Allergy status to penicillin; Z88.2 Allergy status to sulfonamides; Z88.7 Allergy status to serum and vaccine; Z89.512 Acquired absence of left leg below knee; W18.39XA Other fall on same level, initial encounter; Y93.89 Activity, other specified; Y92.89 Other specified places as the place of occurrence of the external cause; Y99.8 Other external cause status
CPT/HCPCS: 73090; 99283

== ENCOUNTER 2025-03-23 19:36 | Emergency (ER) | payer MEDICARE, MEDICAID ==
[~2025-03-23] VITALS: Ht 165.1 cm; Wt 118.8 kg
[~2025-03-23 19:36] MED LIST changes: +DICL20GE TP
--- NOTE | 2025-03-23 19:55 | EKG ---
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
[2025-03-23 20:08] LABS: IMMATURE GRANULOCYTE ABSOLUTE 0.03 K/uL (0-1); NUCLEATED RED BLOOD CELLS 0.0 % (0.0-0.19); PLATELET COUNT (AUTO) 168 K/uL (130-400); RED BLOOD CELL COUNT(AUTO) 4.93 MIL/uL (4.00-5.50); RED CELL DISTRIBUTION WIDTH 14.2 % (11.0-15.5); WHITE BLOOD COUNT (AUTO) 6.3 K/uL (4.8-10.8)
[2025-03-23] MEDS: 0.9%NACL 1000ML 1,000 ML IV ONE (20:28)
[2025-03-23 20:54] LABS: ASPARTATE AMINOTRANSFERASE 23.0 U/L (10-37); CREATINE KINASE, TOTAL 64.0 U/L (21-232); CREATININE 1.1 mg/dL (0.5-1.0); GLOMERULAR FILTR. RATE CALC 62.0 mL/min (>90); SODIUM SERUM 133.0 mmol/L (136-145); TOTAL PROTEIN, SERUM 7.0 g/dL (6.0-8.3); UREA NITROGEN, BLOOD 22.0 mg/dL (7-18)
[2025-03-23 20:56] LABS: GLUCOSE,RANDOM 448.0 mg/dL (70-105)
[2025-03-23 21:28] LABS: APPEARANCE,URINE CLEAR (CLEAR); GLUCOSE, URINE (UA) >=1000 mg/dL (NEGATIVE); LEUKOCYTE ESTERASE ,URINE NEGATIVE Leu/uL (NEGATIVE); NITRATE,URINE NEGATIVE (NEGATIVE); OCCULT BLOOD,URINE SMALL (NEGATIVE)
[2025-03-23 21:29] LABS: ADD UA MICROSCOPIC YES
[2025-03-23 21:30] LABS: SQUAMOUS EPITHELIAL CELL,UR RARE /HPF (0-2)
[2025-03-23] MEDS ORDERED: PANT20TA18 PO (23:29)
[2025-03-23 23:34] VITALS: BP 154/83; PULSE 80; RESP 15; TEMP 98.4; O2SAT 98
== END 2025-03-23 23:49 | disposition home or self-care (01) ==
LOC: EDH 19:36
DX: K29.70 Gastritis, unspecified, without bleeding (principal); E11.65 Type 2 diabetes mellitus with hyperglycemia; I10 Essential (primary) hypertension; E78.00 Pure hypercholesterolemia, unspecified; E11.43 Type 2 diabetes mellitus with diabetic autonomic (poly)neuropathy; K31.84 Gastroparesis; Z88.0 Allergy status to penicillin; Z88.2 Allergy status to sulfonamides; Z88.7 Allergy status to serum and vaccine; Z89.512 Acquired absence of left leg below knee; Z79.1 Long term (current) use of non-steroidal anti-inflammatories (NSAID)
CPT/HCPCS: 99285; 96374; 96375; 96361; 82248; 82550; 84484; 80053; 84703; 83690; 85025; 82948 ×3; 81001; 36415; 93005; J1815; J7030; J2405; J2270; J2470

== ENCOUNTER 2025-05-06 07:44 | Emergency (ER) | payer MEDICARE, MEDICAID ==
[~2025-05-06] VITALS: Ht 165.1 cm; Wt 120.2 kg
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
--- NOTE | 2025-05-06 07:55 | NUR ---
PATIENT IN ROOM
[2025-05-06 08:18] LABS: IMMATURE GRANULOCYTE ABSOLUTE 0.04 K/uL (0-1); NUCLEATED RED BLOOD CELLS 0.0 % (0.0-0.19); PLATELET COUNT (AUTO) 152 K/uL (130-400); RED BLOOD CELL COUNT(AUTO) 4.88 MIL/uL (4.00-5.50); RED CELL DISTRIBUTION WIDTH 14.2 % (11.0-15.5); WHITE BLOOD COUNT (AUTO) 3.7 K/uL (4.8-10.8)
[2025-05-06 08:23] LABS: SARS-CoV-2, RNA, NAAT NEGATIVE SARS CoV-2 (NEGATIVE)
[2025-05-06 08:25] LABS: RAPID GROUP A STREP negative (NEGATIVE)
[2025-05-06 08:32] LABS: CREATININE 1.2 mg/dL (0.5-1.0); GLOMERULAR FILTR. RATE CALC 55.0 mL/min (>90); GLUCOSE,RANDOM 288.0 mg/dL (70-105); SODIUM SERUM 136.0 mmol/L (136-145); UREA NITROGEN, BLOOD 21.0 mg/dL (7-18)
[2025-05-06 08:35] LABS: INFLUENZA TYPE A Negative For Type A (NEGATIVE); INFLUENZA TYPE B Negative For Type B (NEGATIVE)
--- NOTE | 2025-05-06 09:43 | HMCIMG ---
EXAM: CR Chest, 1 View. CLINICAL HISTORY: cough/ cp COMPARISON: None provided. FINDINGS: LUNGS: The lungs show no infiltrate or other acute finding. PLEURAL SPACES: No evidence of pleural effusion or pneumothorax. MEDIASTINUM: The cardiomediastinal silhouette is within normal limits. BONES: No aggressive appearing osseous lesion seen. IMPRESSION: No acute cardiopulmonary pathology is evident. /[place]
[2025-05-06 10:04] VITALS: BP 176/96; PULSE 95; RESP 13; TEMP 98.8; O2SAT 94
--- NOTE | 2025-05-06 10:33 | EKG ---
[facility] Test Date: 2025-05-06 Test Time: 07:52:02 Pat Name: ELENO ROBLES Department: [facility] Room: Gender: F Control Analyst: [id number] : [id number] Requested By: FEDE PELAYO Order Number: [id number] Reading MD: Randell Joiner Measurements Intervals [place] Rate: 100 P: 55 AK: 140 QRS: 28 QRSD: 66 T: 41 QT: 335 QTc: 432 Interpretive Statements Sinus tachycardia Low voltage, precordial leads Compared to ECG 03/23/2025 19:48:43 Sinus rhythm no longer present Electronically Signed On 05-06-2025 18:21:10 BUSINESS RECORDS MANAGER by Randell Joiner Please click the below link to view image of tracing.
== END 2025-05-06 10:05 | disposition home or self-care (01) ==
LOC: EDH 07:44
DX: J32.9 Chronic sinusitis, unspecified (principal); J06.9 Acute upper respiratory infection, unspecified; E11.43 Type 2 diabetes mellitus with diabetic autonomic (poly)neuropathy; E78.00 Pure hypercholesterolemia, unspecified; I10 Essential (primary) hypertension; Z79.899 Other long term (current) drug therapy; Z79.1 Long term (current) use of non-steroidal anti-inflammatories (NSAID); Z88.0 Allergy status to penicillin; Z88.2 Allergy status to sulfonamides; Z88.7 Allergy status to serum and vaccine; Z20.822 Contact with and (suspected) exposure to COVID-19
CPT/HCPCS: 99285; 71045; 87635; 84484; 80048; 84703; 85025; 87880; 87804 ×2; 36415; 96372; 93005; J1100

== ENCOUNTER 2025-05-10 16:02 | Emergency (ER) | payer MEDICARE, MEDICAID ==
[~2025-05-10] VITALS: Ht 165.1 cm; Wt 118.8 kg
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
--- NOTE | 2025-05-10 16:15 | NUR ---
PATIENT IN ROOM
--- NOTE | 2025-05-10 16:20 | NUR ---
PATIENT STATES HAVING SHORTNESS OF BREATH AND NOT ABLE TO BREATH PROPERLY. PATIENT WAS PLACED ON 2L OF NC. OXYGEN SAT IS AT 97%.
[2025-05-10 16:39] LABS: IMMATURE GRANULOCYTE ABSOLUTE 0.01 K/uL (0-1); NUCLEATED RED BLOOD CELLS 0.0 % (0.0-0.19); PLATELET COUNT (AUTO) 139 K/uL (130-400); RED BLOOD CELL COUNT(AUTO) 4.85 MIL/uL (4.00-5.50); RED CELL DISTRIBUTION WIDTH 14.3 % (11.0-15.5); WHITE BLOOD COUNT (AUTO) 3.0 K/uL (4.8-10.8)
[2025-05-10 16:54] LABS: CREATININE 1.1 mg/dL (0.5-1.0); GLOMERULAR FILTR. RATE CALC 62.0 mL/min (>90); GLUCOSE,RANDOM 218.0 mg/dL (70-105); SODIUM SERUM 137.0 mmol/L (136-145); UREA NITROGEN, BLOOD 26.0 mg/dL (7-18)
--- NOTE | 2025-05-10 17:17 | HMCIMG ---
EXAM: CR Chest, 1 View. CLINICAL HISTORY: COUGH COMPARISON: 05/06/2025 FINDINGS: LUNGS: The lungs show no infiltrate or other acute finding. PLEURAL SPACES: No evidence of pleural effusion or pneumothorax. MEDIASTINUM: Cardiac size and mediastinal contours within normal limits. BONES: No acute osseous abnormality. IMPRESSION: No acute cardiopulmonary pathology is evident. /[place]
[2025-05-10 17:39] LABS: LYMPHOCYTES % (MANUAL) 38 % (22-44); MAN.DIFF COMMENT-IMPRESSION MANUAL DIFFERENTIAL; MONOCYTES % (MANUAL) 7 % (2-9); PLATELET MORPHOLOGY COMMENT ADEQUATE; SEGMENTED NEUTROPHILS % 55 % (40-70); WBC MORPHOLOGY CONSISTENT W/DIFF
[2025-05-10 17:50] LABS: APPEARANCE,URINE CLOUDY (CLEAR); GLUCOSE, URINE (UA) 500 mg/dL (NEGATIVE); LEUKOCYTE ESTERASE ,URINE 75 Leu/uL (NEGATIVE); NITRATE,URINE NEGATIVE (NEGATIVE); OCCULT BLOOD,URINE SMALL (NEGATIVE)
[2025-05-10 17:55] LABS: ADD UA MICROSCOPIC YES
[2025-05-10 18:06] LABS: SQUAMOUS EPITHELIAL CELL,UR FEW /HPF (0-2); YEAST,URINE BUDDING MANY /HPF (None Seen)
[2025-05-10 18:49] VITALS: BP 113/52; PULSE 74; RESP 12; TEMP 97.5; O2SAT 96
--- NOTE | 2025-05-11 14:52 | EKG ---
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
== END 2025-05-10 19:00 | disposition home or self-care (01) ==
LOC: EDH 16:02
DX: N39.0 Urinary tract infection, site not specified (principal); E11.65 Type 2 diabetes mellitus with hyperglycemia; D72.819 Decreased white blood cell count, unspecified; E83.51 Hypocalcemia; E66.9 Obesity, unspecified; E78.00 Pure hypercholesterolemia, unspecified; I10 Essential (primary) hypertension; Z79.1 Long term (current) use of non-steroidal anti-inflammatories (NSAID); Z79.899 Other long term (current) drug therapy; Z88.0 Allergy status to penicillin; Z88.2 Allergy status to sulfonamides; Z88.7 Allergy status to serum and vaccine
CPT/HCPCS: 36415; 71045; 80048; 81001; 82010; 83880; 84484; 85025; 87086; 93005; 99285